=== PATIENT | male | born 2000 | race African-American/Black ===

== ENCOUNTER 2019-07-19 03:18 | Inpatient (IN) | payer OTHER ==
[~2019-07-19] VITALS: Ht 172.7 cm; Wt 100.0 kg
[2019-07-19 04:07] LABS: HEMATOCRIT 43.7 % (42.0-52.0); HEMOGLOBIN 14.2 g/dl (13.5-17.5); MEAN CORPUSCULAR HEMOGLOBIN 26.4 pg (27.0-33.0); MEAN CORPUSCULAR HGB CONC 32.5 g/dl (32.0-36.5); MEAN CORPUSCULAR VOLUME 81.2 fl (80.0-96.0); PLATELET COUNT, AUTOMATED 195 10^3/uL (150-450); RED BLOOD COUNT 5.38 10^6/uL (4.30-6.10); WHITE BLOOD COUNT 4.8 10^3/uL (4.0-10.0)
[2019-07-19 04:43] LABS: AMPHETAMINES LEVEL URINE NEGATIVE (NEGATIVE); BARBITURATES URINE NEGATIVE (NEGATIVE); BENZODIAZEPINES URINE NEGATIVE (NEGATIVE); CANNABINOIDS URINE NEGATIVE (NEGATIVE); COCAINE METABOLITE URINE NEGATIVE (NEGATIVE); METHADONE URINE NEGATIVE (NEGATIVE); OPIATES URINE NEGATIVE (NEGATIVE); PHENCYCLIDINE URINE NEGATIVE (NEGATIVE)
[2019-07-19 04:55] LABS: ACETAMINOPHEN LEVEL < 2.0 UG/ML (10.0-30.0); ALBUMIN 4.2 GM/DL (3.2-5.2); ALT/SGPT 39 U/L (12-78); BILIRUBIN,DIRECT 0.1 MG/DL (0.0-0.2); BILIRUBIN,TOTAL 0.5 MG/DL (0.2-1.0); BLOOD UREA NITROGEN 11 MG/DL (7-18); CALCIUM LEVEL 8.9 MG/DL (8.5-10.1); CARBON DIOXIDE LEVEL 26 MEQ/L (21-32); CHLORIDE LEVEL 108 MEQ/L (98-107); CREATININE FOR GFR 1.03 MG/DL (0.70-1.30); ETHYL ALCOHOL (ETHANOL) < 0.003 % (0.000-0.010); GLUCOSE, FASTING 83 MG/DL (70-100); SALICYLATE LEVEL < 1.7 MG/DL (5.0-30.0); SODIUM LEVEL 142 MEQ/L (136-145); TOTAL PROTEIN 7.8 GM/DL (6.4-8.2)
[2019-07-19] MEDS ORDERED: MOM 30ML SUSPENSION UDC PO PRN (09:15)
[2019-07-19] MEDS ORDERED: MAALOX 30 ML SUSP *UDC PO PRN (09:15)
[2019-07-19] MEDS ORDERED: OLANZapine ORAL DISINTEGRATING TAB 5MG PO PRN (09:15)
[2019-07-19 13:55] VITALS: BP 121/68
[2019-07-20 06:29] VITALS: BP 111/53
--- NOTE | 2019-07-20 09:14 | MHHPEPDOC ---
General Date Of Admission: Jul 19, 2019 Legal Status: 9.39 Chief Complaint "I felt really bad". History of Present Illness HISTORY OF THE PRESENT ILLNESS: Patient is a 19 -year-old , male, who presents to [facility] after becoming increasingly depressed and reporting suicidal thoughts with plans to shoot or jump off a building. The patient reports that he is had multiple difficulties at work and he is an active duty soldier. He reports becoming increasingly depressed and despondent, he reports multiple previous admissions and describes that he has recently has suicide attempted twice and team worry attempted to drink bleach. The patient reports that he is gotten progressively worse over the last several weeks.. Psychiatric Review of Systems Depression (2 or more weeks): depressed mood, decreased energy, difficulty concentrating, appetite changes Kimberly (4 or more days of): denies Psychosis: denies PTSD: history of trauma Anxiety: situational anxiety, stressor related anxiety Past Psychiatric History Previous Psychiatric Diagnosis: depression. Previous Psychiatric Admissions: 2017. Suicide Attempts: 2017, drink bleach. Psychiatric Follow-up: [facility]. Psychiatric medications: none. Past Medical History Medical Problems No significant medical problems Family Medical/Psychiatric HX Psychiatric Disorders: Yes (dad depression) Addiction History nicotine, alcohol Social History Childhood: Normal. Abuse/Trauma:reports hx of trauma. Current Living Situation: lives [facility]. Education: . Employment: [employer]. Social Support: few. Legal: none noted. Marital: single, children. Mental Status Examination General Appearance: well groomed Build: average Demeanor: average Eye Contact: average Activity: average Behavior: cooperative Speech: clear Mood: depressed Affect: full Thought Process: logical/linear Thought Content (Delusions): denies SI, HI, AVH Thought Content (Other): none reported Thought Content (Aggressive): none reported Perception (Hallucinations): none reported Perception (Other): none reported Cognition (Impairment of): none reported Cognition(Intelligence Est.): average Oriented: Awake, Alert Insight: fair Judgment: Fair Psychosis: Denies A-FIB/CHADSVASC A-FIB History Current/History of A-Fib/PAF?: No Assessment 19-year-old man with a history of reported depression presents with symptoms of depression, he's open to treatment and hopefully this will engender a good prognosis. Problem List Problems: (1) Major depressive disorder, recurrent Status: Acute Response to Treatment: Uncontrolled Discussed With: Patient Problem Text: Remeron 7.5mg QHS, start, discussed (2) Occupation-related stress disorder Status: Acute Response to Treatment: Uncontrolled Discussed With: Nurse, Patient Initial Treatment Plan 1. Patient was admitted on a [9.39] status. 2. Complete history was obtained. 3. With patients permission, family will be contacted and database will be expanded. 4. Patients medication regimen will be reviewed and changed accordingly. 5. Patient will be provided with protected environment. 6. Patient will be treated with individual, group, and milieu therapies. 7. Patient will receive supportive psych-education. 8. Discharge planning will commence immediately. 9. Outpatient follow-up treatment will be strongly recommended. 10. The initial treatment plan will focus initially on: * Depression. * Risk for suicide. ESTIMATED LENGTH OF STAY: 2-3 DAYS. TIME SPENT COUNSELING AND COORDINATING INITIAL CARE: 30 minutes. Vital Signs Vital Signs Date Time Temp Pulse Resp B/P (MAP) Pulse Ox O2 Delivery O2 Flow Rate FiO2 07/20/19 06:29 97.2 63 14 111/53 (72) 99 Room Air Medications No Active Prescriptions or Reported Meds Allergies Coded Allergies: No Known Drug Allergies (Verified Allergy, Unknown, 05/07/19) FUENTES MICHELLE DO Jul 20, 2019 09:14
[2019-07-20 17:11] VITALS: BP 133/61
--- NOTE | 2019-07-20 18:19 | HPEPDOC ---
[facility] Medical History & Physical Date of Admission Jul 19, 2019 Date of Service: Jul 20, 2019 Attending Physician: Rocio Sterling MD History and Physical HISTORY OF PRESENT ILLNESS: The patient is a 19-year-old male with past medical history of depression, prior suicidal ideations and attempts who presented to [facility] emergency room after threatening to jump from a structure and shoot himself. The patient has been very unhappy with his current living and job situation in the . He states that he "tries hard to do well but doesn't seem to be adjusting. This is not who I am. ". He said he hates the that he has been in for one year. He is tried to get out but they will not let him. Yesterday he said he felt increased hopelessness, became increasingly depressed and had suicidal ideations to jump off of her roof from the top form is barracks to kill himself. He also has had a dream about killing himself with a gun or hurting himself with a knife that he owns. He says that he is unhappy with his current job choice within the and has been feeling increasingly depressed due to him not being able to go visit his family outside of the state or friends. He feels "trapped". Yesterday the patient called a hotline for suicide who notified police to come and get the patient. In the emergency room the patient had a flat affect. On my examination of the patient he admits to previously tried to kill himself in 2017 by drinking bleach. He was hospitalized at that time and diagnosed with depression. He was also treated for ulcers at that time as well. The patient denies visual or auditory hallucinations but admits to getting tearful often and feeling hopeless and anxious, having a lack of energy and loss of appetite. REVIEW OF SYSTEMS: Negative except for what is mentioned above PAST MEDICAL HISTORY: 1. Depression 2. Suicidal ideation 3. Hx of suicide attempt by drinking bleach, 2016 PAST SURGICAL HISTORY: 1. Mass removal in right thigh FAMILY HISTORY: Father: "Heartbreak syndrome", "heart problem". Alive Mother: EDITH. Alive grandmother: Cancer, type unknown. at unknown age Aunt: Ovarian cancer. Alive SOCIAL HISTORY: Remote smoking history for less than 2 years, quit 04/2019. Admits to smoking marijuana in the past but denies illicit drug use now. Drinks alcohol nightly 23 beers, sometimes more if he's feeling "more depressed". Lives by himself on [address], he is active duty . ALLERGIES: Please see below. HOME MEDICATIONS: Please see below. PHYSICAL EXAMINATION: CONSTITUTIONAL: No acute distress, resting comfortably, AAO x 3 EYES: PERRLA, EOM intact HENT, MOUTH: Normocephalic, atraumatic, moist mucous membranes, NECK: SUPPLE, no JVD, no lymphadenopathy, no carotid bruit CV: Regular rate and rhythm, S1S2 normal, no murmurs/rubs/gallops RESPIRATORY: Clear to auscultation bilaterally, no rales/rhonchi/wheezes GI: BS positive in 4 quadrants, soft, nontender, nondistended, no rebound or guarding, no organomegaly : Deferred MUSCULOSKELETAL: Normal ROM. No cyanosis, clubbing, swelling, joint deformity, extremity edema INTEGUMENTARY: Intact, no rashes, no lesions, no erythema NEUROLOGIC: Cranial Nerves II-XII are intact, no focal deficits PSYCHIATRIC: Flat affect LABORATORY DATA: Please see below IMAGING: None ASSESSMENT: 19-year-old male admitted for unspecified depressive disorder, suicidal ideation. PLAN: 1. Unspecified depressive disorder. To be managed by psychiatry team. 2. Suicidal ideation with history of suicide attempt in past. To be managed by psychiatry team. DISPOSITION: At this time the patient does not have any medical needs outside of psychiatric help. We will sign off but we are happy to see again if needed. Vital Signs Vital Signs Date Time Temp Pulse Resp B/P (MAP) Pulse Ox O2 Delivery O2 Flow Rate FiO2 07/20/19 17:11 98.8 60 14 133/61 (85) 07/20/19 06:29 99 Room Air Home Medications No Active Prescriptions or Reported Meds Allergies Coded Allergies: No Known Drug Allergies (Verified Allergy, Unknown, 05/07/19) A-FIB/CHADSVASC A-FIB History Current/History of A-Fib/PAF?: No Current PO Anticoag Therapy: No Age/Risk Factor Scoring CHADSVASC: CHADSVASC Response (Comments) Value Age Risk Factor Age < 65 years old 0 Gender Risk Factor Male 0 Hx of CHF No 0 Hx of HTN No 0 Hx of Stroke/TIA/or VTE No 0 Hx of Diabetes No 0 Hx of Vascular Disease No 0 Total 0 Treatment Treatment ordered: NONE Rocio Sterling MD Jul 20, 2019 18:19
[2019-07-20] MEDS ORDERED: MIRTAZAPINE 7.5MG PER 1/2 TABLET PO SCH (21:00)
[2019-07-21 06:30] VITALS: BP 134/60
--- NOTE | 2019-07-21 09:27 | MHIPNPDOC ---
[facility] Progress Note Progress Note DOS 07/21/2019 Events Overnight: none Group Attendance:: none Symptom changes (psych ROS): patient reports still feeling depressed, fatigued and with some insomnia. He still reports feeling hopeless Staff Report: staff report patient has still been quite depressed although denying any suicidal or homicidal ideation. Medical ROS: [Gen: -fevers, chills] [Cardio: -chest pain, palpations] [[place]: -SOB, cough] [GI: -N,V,D,C] [Neuro: -tremors, msk stiffness] [Derm: -rash] MSE: Vitals: Below General: Well dressed with good hygiene Speech: Spontaneous and fluid Thought processes: Linear and logical Thought content: hopeless Abstract reasoning, and computation: Intact Description of associations: Intact Description of abnormal or psychotic thoughts: denies any suicidal or homicidal ideation Judgment: fair Insight: fair Orientation: Alert and orientated 3 Recent and remote memory: Intact Attention span and concentration: Intact Fund of knowledge: Adequate Mood: "okay" Affect: dysthymic, constricted Vital Signs Vital Signs Date Time Temp Pulse Resp B/P (MAP) Pulse Ox O2 Delivery O2 Flow Rate FiO2 07/21/19 06:30 98.6 63 18 134/60 (84) 99 Room Air Current Medications Current Medications Medications (Trade) Dose Ordered Sig/Donis Route PRN Reason Start Time Stop Time Status Last Admin Dose Admin Acetaminophen (Tylenol Tab) 650 mg Q6HP PRN PO HEADACHE or DISCOMFORT 07/19/19 09:15 Al Hydrox/Mg Hydrox/Simethicone (Mylanta) 30 ml Q4HP PRN PO HEARTBURN/INDIGESTION 07/19/19 09:15 Home Med (Med Rec Complete!) ASDIRECTED XX 07/19/19 06:00 07/19/19 05:54 DC Magnesium Hydroxide (Milk Of Magnesia) 30 ml DAILYPRN PRN PO CONSTIPATION 07/19/19 09:15 Mirtazapine (Remeron) 7.5 mg QHS PO 07/20/19 21:00 07/20/19 21:13 Olanzapine (ZyPREXA ZYDIS) 5 mg Q4HP PRN PO AGITATION 07/19/19 09:15 Allergies Coded Allergies: No Known Drug Allergies (Verified Allergy, Unknown, 05/07/19) Problems (1) Major depressive disorder, recurrent Status: Acute Response to Treatment: Uncompensated Problem Text: increase mirtazapine to 15 mg nightly (2) Occupation-related stress disorder Status: Acute Problem Text: recommend outpatient psychotherapy. Plan / VTE VTE Prophylaxis Ordered?: No Plan Diet: Continue Current Activity: Continue Current Anticipated Discharge: Other Anticipated D/C ( discharge, however, will convert to voluntary for further care. After discussion with patient) FUENTES MICHELLE DO Jul 21, 2019 09:26
[2019-07-21 17:20] VITALS: BP 138/91
[2019-07-21] MEDS: MIRTAZAPINE 15 MG TAB PO SCH (20:48)
[2019-07-22 06:12] VITALS: BP 148/87
--- NOTE | 2019-07-22 09:58 | MHIPNPDOC ---
[facility] Progress Note Progress Note DOS 07/22/2019 Patient met with today with nurse present for telehealth evaluation due to COVID Crisis Events Overnight:[none] Group Attendance:: none Symptom changes (psych ROS): Affective: continues report low mood, loss of interest and fatigue Psychotic:[None today] Anxiety: [no changes] Staff Report: remains quite depressed and isolative per staff report Medical ROS: [Gen: -fevers, chills] [Cardio: -chest pain, palpations] [[place]: -SOB, cough] [GI: -N,V,D,C] [Neuro: -tremors, msk stiffness] [Derm: -rash] MSE: Vitals: Below General: Well dressed with good hygiene Speech: Spontaneous and fluid Thought processes: Linear and logical Thought content: hopelessness Abstract reasoning, and computation: Intact Description of associations: Intact Description of abnormal or psychotic thoughts: denies any suicidal or homicidal ideation today Judgment: limited Insight: fair Orientation: Alert and orientated 3 Recent and remote memory: Intact Attention span and concentration: Intact Fund of knowledge: Adequate Mood: "okay" Affect: dysthymic, constricted Vital Signs Vital Signs Date Time Temp Pulse Resp B/P (MAP) Pulse Ox O2 Delivery O2 Flow Rate FiO2 07/22/19 06:12 97.6 63 18 148/87 (107) 07/21/19 17:20 99 Room Air Current Medications Current Medications Medications (Trade) Dose Ordered Sig/Donis Route PRN Reason Start Time Stop Time Status Last Admin Dose Admin Acetaminophen (Tylenol Tab) 650 mg Q6HP PRN PO HEADACHE or DISCOMFORT 07/19/19 09:15 Al Hydrox/Mg Hydrox/Simethicone (Mylanta) 30 ml Q4HP PRN PO HEARTBURN/INDIGESTION 07/19/19 09:15 Home Med (Med Rec Complete!) ASDIRECTED XX 07/19/19 06:00 07/19/19 05:54 DC Magnesium Hydroxide (Milk Of Magnesia) 30 ml DAILYPRN PRN PO CONSTIPATION 07/19/19 09:15 Mirtazapine (Remeron) 7.5 mg QHS PO 07/20/19 21:00 07/21/19 16:43 DC 07/20/19 21:13 Mirtazapine (Remeron) 15 mg QHS PO 07/21/19 21:00 07/21/19 20:48 Olanzapine (ZyPREXA ZYDIS) 5 mg Q4HP PRN PO AGITATION 07/19/19 09:15 Allergies Coded Allergies: No Known Drug Allergies (Verified Allergy, Unknown, 05/07/19) Problems (1) Major depressive disorder, recurrent Status: Acute Response to Treatment: Uncompensated Problem Text: continue [id number] mg nightly,add Wellbutrin 150 mg daily, screens negative for eating disorders and seizure at this time (2) Occupation-related stress disorder Status: Acute Problem Text: recommend outpatient psychotherapy. Plan / VTE VTE Prophylaxis Ordered?: No Plan Diet: Continue Current Activity: Continue Current Anticipated Discharge: Other Anticipated D/C (no discharge date as of yet) FUENTES MICHELLE DO Jul 22, 2019 09:58
[2019-07-22] MEDS ORDERED: buPROPion **XL** TABLET 150MG (WELLBUTRIN XL) PO ONE (10:30)
[2019-07-22 17:53] VITALS: BP 110/60
[2019-07-22] MEDS: MIRTAZAPINE 15 MG TAB PO SCH (21:12)
[2019-07-23 06:16] VITALS: BP 118/56
[2019-07-23] MEDS: buPROPion **XL** TABLET 150MG (WELLBUTRIN XL) PO SCH (09:50)
--- NOTE | 2019-07-23 10:20 | MHIPNPDOC ---
[facility] Progress Note Progress Note DOS 07/23/2019 Patient met with today with nurse present for telehealth evaluation due to COVID Crisis Events Overnight:[none] Group Attendance:: none Symptom changes (psych ROS): Affective: still depressed and hopeless, much fatigue and loss of interest Psychotic:[None today] Anxiety: [no changes] Staff Report: still quite depressed and hopeless Medical ROS: [Gen: -fevers, chills] [Cardio: -chest pain, palpations] [[place]: -SOB, cough] [GI: -N,V,D,C] [Neuro: -tremors, msk stiffness] [Derm: -rash] MSE: Vitals: Below General: Well dressed with good hygiene Speech: Spontaneous and fluid Thought processes: Linear and logical Thought content: hopelessness Abstract reasoning, and computation: Intact Description of associations: Intact Description of abnormal or psychotic thoughts: denies Judgment: improving Insight: improving Orientation: Alert and orientated 3 Recent and remote memory: Intact Attention span and concentration: Intact Fund of knowledge: Adequate Mood: "okay" Affect: dysthymic, constricted Vital Signs Vital Signs Date Time Temp Pulse Resp B/P (MAP) Pulse Ox O2 Delivery O2 Flow Rate FiO2 07/23/19 06:16 97.1 52 14 118/56 (76) 100 Room Air Current Medications Current Medications Medications (Trade) Dose Ordered Sig/Donis Route PRN Reason Start Time Stop Time Status Last Admin Dose Admin Acetaminophen (Tylenol Tab) 650 mg Q6HP PRN PO HEADACHE or DISCOMFORT 07/19/19 09:15 Al Hydrox/Mg Hydrox/Simethicone (Mylanta) 30 ml Q4HP PRN PO HEARTBURN/INDIGESTION 07/19/19 09:15 Bupropion HCl (Wellbutrin Xl) 150 mg DAILY PO 07/23/19 09:00 07/23/19 09:50 Home Med (Med Rec Complete!) ASDIRECTED XX 07/19/19 06:00 07/19/19 05:54 DC Magnesium Hydroxide (Milk Of Magnesia) 30 ml DAILYPRN PRN PO CONSTIPATION 07/19/19 09:15 Mirtazapine (Remeron) 7.5 mg QHS PO 07/20/19 21:00 07/21/19 16:43 DC 07/20/19 21:13 Mirtazapine (Remeron) 15 mg QHS PO 07/21/19 21:00 07/22/19 21:12 Olanzapine (ZyPREXA ZYDIS) 5 mg Q4HP PRN PO AGITATION 07/19/19 09:15 Allergies Coded Allergies: No Known Drug Allergies (Verified Allergy, Unknown, 05/07/19) Problems (1) Major depressive disorder, recurrent Status: Acute Response to Treatment: Uncompensated Problem Text: continue Remeron 15 mg nightly and Wellbutrin 150 mg exam release daily (2) Occupation-related stress disorder Status: Acute Problem Text: recommend outpatient psychotherapy. Plan / VTE VTE Prophylaxis Ordered?: No Plan Diet: Continue Current Activity: Continue Current Anticipated Discharge: Other Anticipated D/C (no discharge date as of yet) FUENTES MICHELLE DO Jul 23, 2019 10:20
[2019-07-23 15:58] VITALS: BP 141/65
[2019-07-23] MEDS: MIRTAZAPINE 15 MG TAB PO SCH (21:00)
[2019-07-24 06:08] VITALS: BP 108/56
[2019-07-24] MEDS: buPROPion **XL** TABLET 150MG (WELLBUTRIN XL) PO SCH (09:03)
[2019-07-24 15:49] VITALS: BP 132/65
[2019-07-24] MEDS: MIRTAZAPINE 15 MG TAB PO SCH (21:08)
[2019-07-25 06:13] VITALS: BP 92/53
[2019-07-25] MEDS: buPROPion **XL** TABLET 150MG (WELLBUTRIN XL) PO SCH (08:31)
--- NOTE | 2019-07-25 09:19 | MHIPNPDOC ---
[facility] Progress Note Progress Note DOS: 07/25/2019 Patient met with today with nurse present for telehealth evaluation due to COVID Crisis Events Overnight:[none] Group Attendance:: none Symptom changes (psych ROS): Affective: reports fatigue, loss of interest and insomnia Psychotic:[None today] Anxiety: situational anxiety Staff Report: generally on engaged in treatment, needed to be prompted in order to engage in treatment Medical ROS: [Gen: -fevers, chills] [Cardio: -chest pain, palpations] [[place]: -SOB, cough] [GI: -N,V,D,C] neuro-: negative tremors, positive eye discomfort [Derm: -rash] MSE: Vitals: Below General: Well dressed with good hygiene Speech: Spontaneous and fluid Thought processes: Linear and logical Thought content: hopelessness Abstract reasoning, and computation: Intact Description of associations: Intact Description of abnormal or psychotic thoughts: no SI Judgment: limited Insight: limited Orientation: Alert and orientated 3 Recent and remote memory: Intact Attention span and concentration: Intact Fund of knowledge: Adequate Mood: "okay" Affect: dysthymic, constricted Vital Signs Vital Signs Date Time Temp Pulse Resp B/P (MAP) Pulse Ox O2 Delivery O2 Flow Rate FiO2 07/25/19 06:13 98.8 53 12 92/53 (66) Room Air 07/24/19 06:08 99 Current Medications Current Medications Medications (Trade) Dose Ordered Sig/Donis Route PRN Reason Start Time Stop Time Status Last Admin Dose Admin Acetaminophen (Tylenol Tab) 650 mg Q6HP PRN PO HEADACHE or DISCOMFORT 07/19/19 09:15 Al Hydrox/Mg Hydrox/Simethicone (Mylanta) 30 ml Q4HP PRN PO HEARTBURN/INDIGESTION 07/19/19 09:15 Bupropion HCl (Wellbutrin Xl) 150 mg DAILY PO 07/23/19 09:00 07/25/19 08:31 Home Med (Med Rec Complete!) ASDIRECTED XX 07/19/19 06:00 07/19/19 05:54 DC Magnesium Hydroxide (Milk Of Magnesia) 30 ml DAILYPRN PRN PO CONSTIPATION 07/19/19 09:15 Mirtazapine (Remeron) 7.5 mg QHS PO 07/20/19 21:00 07/21/19 16:43 DC 07/20/19 21:13 Mirtazapine (Remeron) 15 mg QHS PO 07/21/19 21:00 07/24/19 21:08 Olanzapine (ZyPREXA ZYDIS) 5 mg Q4HP PRN PO AGITATION 07/19/19 09:15 Allergies Coded Allergies: No Known Drug Allergies (Verified Allergy, Unknown, 05/07/19) Problems (1) Major depressive disorder, recurrent Status: Acute Response to Treatment: Uncompensated Problem Text: Cut Remeron and to 7.5, possible sedation related to this. Increase Wellbutrin to 300 mg daily, will monitor eye discomfort. If changes will have hospitalist evaluate, (2) Occupation-related stress disorder Status: Acute Problem Text: recommend outpatient psychotherapy. Plan / VTE VTE Prophylaxis Ordered?: No Plan Diet: Continue Current Activity: Continue Current Anticipated Discharge: Other Anticipated D/C (Will refer to long-term) FUENTES MICHELLE DO Jul 25, 2019 09:19
[2019-07-25 16:48] VITALS: BP 140/72
[2019-07-25] MEDS: MIRTAZAPINE 7.5MG PER 1/2 TABLET PO SCH (21:05)
[2019-07-26 06:07] VITALS: BP 137/63
[2019-07-26] MEDS: buPROPion **XL** TABLET 150MG (WELLBUTRIN XL) PO SCH (08:45)
--- NOTE | 2019-07-26 09:23 | MHIPNPDOC ---
[facility] Progress Note Progress Note DOS: 07/25/2021 Patient met with today with nurse present for telehealth evaluation due to COVID Crisis Events Overnight:[none] Group Attendance:: none Symptom changes (psych ROS): Affective: reports some fatigue, loss of interest, no change Psychotic:[None today] Anxiety: situational Staff Report: patient still doesn't engage well with treatment, peers uninvested Medical ROS: [Gen: -fevers, chills] [Cardio: -chest pain, palpations] [[place]: -SOB, cough] [GI: -N,V,D,C] neuro-: continues report eye discomfort [Derm: -rash] MSE: Vitals: Below General: Well dressed with good hygiene Speech: Spontaneous and fluid Thought processes: Linear and logical Thought content: some hopelessness of present Abstract reasoning, and computation: Intact Description of associations: Intact Description of abnormal or psychotic thoughts: denies SI/HI Judgment: improving Insight: improving Orientation: Alert and orientated 3 Recent and remote memory: Intact Attention span and concentration: Intact Fund of knowledge: Adequate Mood: "okay" Affect: dysthymic, constricted Vital Signs Vital Signs Date Time Temp Pulse Resp B/P (MAP) Pulse Ox O2 Delivery O2 Flow Rate FiO2 07/26/19 06:07 97.1 57 18 137/63 (87) 07/25/19 06:13 Room Air 07/24/19 06:08 99 Current Medications Current Medications Medications (Trade) Dose Ordered Sig/Donis Route PRN Reason Start Time Stop Time Status Last Admin Dose Admin Acetaminophen (Tylenol Tab) 650 mg Q6HP PRN PO HEADACHE or DISCOMFORT 07/19/19 09:15 Al Hydrox/Mg Hydrox/Simethicone (Mylanta) 30 ml Q4HP PRN PO HEARTBURN/INDIGESTION 07/19/19 09:15 Bupropion HCl (Wellbutrin Xl) 150 mg DAILY PO 07/23/19 09:00 07/25/19 10:50 DC 07/25/19 08:31 Bupropion HCl (Wellbutrin Xl) 300 mg DAILY PO 07/26/19 09:00 07/26/19 08:45 Home Med (Med Rec Complete!) ASDIRECTED XX 07/19/19 06:00 07/19/19 05:54 DC Magnesium Hydroxide (Milk Of Magnesia) 30 ml DAILYPRN PRN PO CONSTIPATION 07/19/19 09:15 Mirtazapine (Remeron) 7.5 mg QHS PO 07/20/19 21:00 07/21/19 16:43 DC 07/20/19 21:13 Mirtazapine (Remeron) 7.5 mg QHS PO 07/25/19 21:00 07/25/19 21:05 Mirtazapine (Remeron) 15 mg QHS PO 07/21/19 21:00 07/25/19 10:46 DC 07/24/19 21:08 Olanzapine (ZyPREXA ZYDIS) 5 mg Q4HP PRN PO AGITATION 07/19/19 09:15 Allergies Coded Allergies: No Known Drug Allergies (Verified Allergy, Unknown, 05/07/19) Problems (1) Major depressive disorder, recurrent Status: Acute Response to Treatment: Uncompensated Problem Text: Cut Remeron and to 7.5, possible sedation related to this. Increase Wellbutrin to 300 mg daily, will monitor eye discomfort. If changes will have hospitalist evaluate, (2) Occupation-related stress disorder Status: Acute Problem Text: recommend outpatient psychotherapy. (3) Eye discomfort Problem Specific Plan: Consult Specialist Problem Text: Nursing will contact hospitalist for consultation related to eye problem Plan / VTE VTE Prophylaxis Ordered?: No Plan Diet: Continue Current Activity: Continue Current Anticipated Discharge: Other Anticipated D/C (Rejected from long-term, discharged by end of week) FUENTES MICHELLE DO Jul 26, 2019 09:23
[2019-07-26 16:03] VITALS: BP 139/70
[2019-07-26] MEDS: MIRTAZAPINE 7.5MG PER 1/2 TABLET PO SCH (21:28)
[2019-07-26] MEDS: ACETAMINOPHEN TAB 650MG DOSE (2X325MG) PO PRN (23:13)
[2019-07-27 06:17] VITALS: BP 130/82
[2019-07-27] MEDS: buPROPion **XL** TABLET 150MG (WELLBUTRIN XL) PO SCH (09:03)
--- NOTE | 2019-07-27 09:37 | MHIPNPDOC ---
[facility] Progress Note Progress Note DOS: 07/27/2019 Patient met with today with nurse present for telehealth evaluation due to COVID Crisis Events Overnight:[none] Group Attendance::[frequent] Symptom changes (psych ROS): Affective: improving fatigue and loss of interest Psychotic:[None today] Anxiety: [no changes] Staff Report: has been a little more engaged in care Medical ROS: [Gen: -fevers, chills] [Cardio: -chest pain, palpations] [[place]: -SOB, cough] [GI: -N,V,D,C] neuro-: reports, eye discomfort still present, hospitalist asked patient to monitor [Derm: -rash] MSE: Vitals: Below [General: Well dressed with good hygiene Speech: Spontaneous and fluid Thought processes: Linear and logical Thought content: more Future orientated Abstract reasoning, and computation: Intact Description of associations: Intact Description of abnormal or psychotic thoughts:Denies any suicidal or homicidal ideation. Denies any auditory or visual hallucinations. Does not appear to be responding to internal stimuli. Does not appear to be endorsing any bizarre or paranoid ideation. Judgment: fair Insight: fair Orientation: Alert and orientated 3 Recent and remote memory: Intact Attention span and concentration: Intact Fund of knowledge: Adequate Mood: "okay" Affect: improving] Vital Signs Vital Signs Date Time Temp Pulse Resp B/P (MAP) Pulse Ox O2 Delivery O2 Flow Rate FiO2 07/27/19 06:17 97.3 56 18 130/82 (98) 07/25/19 06:13 Room Air 07/24/19 06:08 99 Current Medications Current Medications Medications (Trade) Dose Ordered Sig/Donis Route PRN Reason Start Time Stop Time Status Last Admin Dose Admin Acetaminophen (Tylenol Tab) 650 mg Q6HP PRN PO HEADACHE or DISCOMFORT 07/19/19 09:15 07/26/19 23:13 Al Hydrox/Mg Hydrox/Simethicone (Mylanta) 30 ml Q4HP PRN PO HEARTBURN/INDIGESTION 07/19/19 09:15 Bupropion HCl (Wellbutrin Xl) 150 mg DAILY PO 07/23/19 09:00 07/25/19 10:50 DC 07/25/19 08:31 Bupropion HCl (Wellbutrin Xl) 300 mg DAILY PO 07/26/19 09:00 07/27/19 09:03 Home Med (Med Rec Complete!) ASDIRECTED XX 07/19/19 06:00 07/19/19 05:54 DC Magnesium Hydroxide (Milk Of Magnesia) 30 ml DAILYPRN PRN PO CONSTIPATION 07/19/19 09:15 Mirtazapine (Remeron) 7.5 mg QHS PO 07/20/19 21:00 07/21/19 16:43 DC 07/20/19 21:13 Mirtazapine (Remeron) 7.5 mg QHS PO 07/25/19 21:00 07/26/19 21:28 Mirtazapine (Remeron) 15 mg QHS PO 07/21/19 21:00 07/25/19 10:46 DC 07/24/19 21:08 Olanzapine (ZyPREXA ZYDIS) 5 mg Q4HP PRN PO AGITATION 07/19/19 09:15 Allergies Coded Allergies: No Known Drug Allergies (Verified Allergy, Unknown, 05/07/19) Problems (1) Major depressive disorder, recurrent Status: Acute Response to Treatment: Uncompensated Problem Text: continue Wellbutrin and Remeron with no changes (2) Occupation-related stress disorder Status: Acute Problem Text: recommend outpatient psychotherapy. (3) Eye discomfort Problem Specific Plan: Consult Specialist Problem Text: hospitalist consulted Plan / VTE VTE Prophylaxis Ordered?: No Plan Diet: Continue Current Activity: Continue Current Anticipated Discharge: Other Anticipated D/C (discharge tomorrow) FUENTES MICHELLE DO Jul 27, 2019 09:37
[2019-07-27] MEDS: ACETAMINOPHEN TAB 650MG DOSE (2X325MG) PO PRN ×2 (13:02→21:36)
[2019-07-27 16:06] VITALS: BP 122/56
[2019-07-27] MEDS: MIRTAZAPINE 7.5MG PER 1/2 TABLET PO SCH (21:36)
[2019-07-28 06:26] VITALS: BP 122/70
[2019-07-28] MEDS: buPROPion **XL** TABLET 150MG (WELLBUTRIN XL) PO SCH (09:05)
--- NOTE | 2019-07-28 17:02 | MHIPNPDOC ---
[facility] Progress Note Progress Note DATE OF SERVICE: 07/28/19 HISTORY: As per previous reports: "Patient is a 19 -year-old , male, who presents to [facility] after becoming increasingly depr essed and reporting suicidal thoughts with plans to shoot or jump off a building. The patient reports that he is had multiple difficulties at work and he is an active duty soldier. He reports becoming increasingly depressed and despondent, he reports multiple previous admissions and describes that he has recently has suicide attempted twice and team worry attempted to drink bleach. The patient reports that he is gotten progressively worse over the last several weeks.." VITAL SIGNS: See below. NEW TEST RESULTS: See below CURRENT MEDICATIONS: See below. MENTAL STATUS EXAMINATION: Patient is a 19-year old male, who is alert, dressed in hospital clothes, superficially cooperative, good hygiene and grooming Speech: not spontaneous, not fluent. Normal in r/t/v Language skills are intact. Thought processes including: linear and coherent. Thought content: He says he might be suicidal, he is not but he might be some other day because "it depends". He denies HI, denies feeling paranoid, denies bizarre delusions, denies grandiose thoughts. Description of abnormal or psychotic thoughts: Suicidal ideation. Judgment: Poor Insight: Poor. Orientation: x 3. Recent and remote memory: fair. Attention span and concentration: fair. Language: adequate. Fund of knowledge: average. Mood: depressed/sad. Affect: congruent with mood. DIAGNOSES: 1. Major Depressive Disorder, recurrent ASSESSMENT: Patient seems to be indifferent, almost as if he would be disassociated. He says if he gets discharged he will go and get "drown" in alcohol. He seems very depressed, as if he doesn't care about anything. He says he doesn't socialize, has no friends, no family. His relatives live in [place] and he says he doesn't talk to them frequently. He is not stable enough to be discharged MANAGEMENT PLAN: As per Dr. Carrion TIME SPENT: 20 minutes. Vital Signs Vital Signs Date Time Temp Pulse Resp B/P (MAP) Pulse Ox O2 Delivery O2 Flow Rate FiO2 07/28/19 06:26 98.3 64 14 122/70 (87) 100 Room Air Current Medications Current Medications Medications (Trade) Dose Ordered Sig/Donis Route PRN Reason Start Time Stop Time Status Last Admin Dose Admin Acetaminophen (Tylenol Tab) 650 mg Q6HP PRN PO HEADACHE or DISCOMFORT 07/19/19 09:15 07/27/19 21:36 Al Hydrox/Mg Hydrox/Simethicone (Mylanta) 30 ml Q4HP PRN PO HEARTBURN/INDIGESTION 07/19/19 09:15 Bupropion HCl (Wellbutrin Xl) 150 mg DAILY PO 07/23/19 09:00 07/25/19 10:50 DC 07/25/19 08:31 Bupropion HCl (Wellbutrin Xl) 300 mg DAILY PO 07/26/19 09:00 07/28/19 09:05 Home Med (Med Rec Complete!) ASDIRECTED XX 07/19/19 06:00 07/19/19 05:54 DC Magnesium Hydroxide (Milk Of Magnesia) 30 ml DAILYPRN PRN PO CONSTIPATION 07/19/19 09:15 Mirtazapine (Remeron) 7.5 mg QHS PO 07/20/19 21:00 07/21/19 16:43 DC 07/20/19 21:13 Mirtazapine (Remeron) 7.5 mg QHS PO 07/25/19 21:00 07/27/19 21:36 Mirtazapine (Remeron) 15 mg QHS PO 07/21/19 21:00 07/25/19 10:46 DC 07/24/19 21:08 Olanzapine (ZyPREXA ZYDIS) 5 mg Q4HP PRN PO AGITATION 07/19/19 09:15 Allergies Coded Allergies: No Known Drug Allergies (Verified Allergy, Unknown, 05/07/19) ALISA BROOKS MD Jul 28, 2019 13:55
[2019-07-28 17:46] VITALS: BP 138/81
[2019-07-28] MEDS: MIRTAZAPINE 7.5MG PER 1/2 TABLET PO SCH (22:53)
[2019-07-29 06:50] VITALS: BP 143/64
[2019-07-29] MEDS: buPROPion **XL** TABLET 150MG (WELLBUTRIN XL) PO SCH (08:51)
--- NOTE | 2019-07-29 09:18 | MHDSPDOC ---
[facility] Discharge Summary Discharge Summary DATE OF ADMISSION: Jul 19, 2019 at 09:09 DATE OF DISCHARGE: Jul 29, 2019 at 12:18 DISCHARGE DIAGNOSES: See Problem list below REASON FOR ADMISSION: 19-year-old man admitted for severe depression and suicidal statements CONSULTANTS INVOLVED:[ None (basic hospitalist screening)] TREATMENT AND PROGRESS ON THE UNIT : Medication changes: started on Wellbutrin increase to 300 mg daily and augmented with mirtazapine 7.5 mg nightly, 15 made the patient too tired, got fair improvement from this current dose. Behavior on unit: initially on interested but became more euthymic and engaged Treatment attendance: attended times Notable issues on presentation: recommended long-term, however [facility] disagreed State on discharge: [improved] DISCHARGE ASSESSMENT: The patient a 19 year old man, with likely depression, presented to [facility], where they treated with appropriate agents and make mild to moderate improvement. Legal status considerations: The patient at the time of discharge did not meet criteria for involuntary admission/extension due to having a [normal] mental status exam, [fair] insight into the situation, They are engaged in the discharge process, as well as being friendly and amenable in behavioral control and havent been engaging in any observed concerning behavior or ideation recently. They decline voluntary extension/admission at this time and must be discharged in good kathleen, as Im unable to make a case for holding the patient against their will. They may have historical risk factors of admissions and other interactions with psychiatry however, those are not modifiable from a clinical perspective. The patient will need to be discharged in good kathleen. MENTAL STATUS EXAMINATION ON DISCHARGE: [General: Well dressed with good hygiene Speech: Spontaneous and fluid Thought processes: Linear and logical Thought content: Future orientated Abstract reasoning, and computation: Intact Description of associations: Intact Description of abnormal or psychotic thoughts:Denies any suicidal or homicidal ideation. Denies any auditory or visual hallucinations. Does not appear to be responding to internal stimuli. Does not appear to be endorsing any bizarre or paranoid ideation. Judgment: fair Insight: fair Orientation: Alert and orientated 3 Recent and remote memory: Intact Attention span and concentration: Intact Fund of knowledge: Adequate Mood: "okay" Affect: Euthymic with a full range] PLAN/FOLLOWUP ARRANGEMENTS: Follow up appointments made (PCP and MH in 5 days of D/C date) and safety plan completed. Safety Planning aspects completed prior to discharge [DOD: Weapons Profile 30 days] [Medication supplies limited to 7 days with 4 refills to prevent accumulation to OD] [RN reviewed crisis hotline information and other aspects to empower patient to access care in interim before next appointment.] The amount of time spent in the coordination of care for this patient was approximately 30 minutes. Vital Signs/I&Os Vital Signs Date Time Temp Pulse Resp B/P (MAP) Pulse Ox O2 Delivery O2 Flow Rate FiO2 07/29/19 06:50 97.8 69 14 143/64 (90) 99 Room Air Medications Scheduled Bupropion Hcl (Bupropion Xl) 150 Mg Tab.er.24h, 300 MG PO DAILY for mood for 7 Days, #14 Mirtazapine (Remeron) 15 Mg Tablet, 7.5 MG PO QHS for mood for 7 Days, #7 Allergies Coded Allergies: No Known Drug Allergies (Verified Allergy, Unknown, 05/07/19) Problems (1) Major depressive disorder, recurrent Status: Acute Response to Treatment: Stable, Uncompensated Problem Text: continue Wellbutrin and Remeron with no changes (2) Occupation-related stress disorder Status: Acute Problem Text: recommend outpatient psychotherapy. Plan / VTE VTE Prophylaxis Ordered?: No FUENTES MICHELLE DO Jul 29, 2019 09:18
[2019-07-29] MEDS ORDERED: BUPR150T3 PO (10:03)
[2019-07-29] MEDS ORDERED: REME15TA PO (10:03)
== END 2019-07-29 12:18 | disposition home or self-care (01) | DRG 885 ==
LOC: M ED 03:18 → M ED INP 09:09 → M PSY 13:50
PROVIDERS: ADMIT Psychiatry & Neurology Addiction Medicine; ATTEND Psychiatry & Neurology Addiction Medicine
DX: F33.9 Major depressive disorder, recurrent, unspecified (principal); R45.851 Suicidal ideations; F43.9 Reaction to severe stress, unspecified; Z56.89 Other problems related to employment